=== PATIENT | female | born 1985 | race Caucasian/White ===

== ENCOUNTER 2019-06-11 05:30 | Day surgery (SDC) | payer MEDICAID ==
[2019-06-11] MEDS ORDERED: Dextrose 5%-Lactated Ringers 1,000 ML IV SCH (06:00)
[2019-06-11] MEDS ORDERED: Propofol 200 MG/20 ML SDV ONE (07:15)
[2019-06-11] MEDS ORDERED: Midazolam 1 MG/ML 2 ML SDV ONE (07:16)
[2019-06-11] MEDS ORDERED: fentaNYL 100 MCG/2 ML SDV ONE (07:16)
[2019-06-11 08:39] VITALS: BP 104/58; PULSE 60
--- NOTE | 2019-06-17 12:17 | OR ---
DATE OF PROCEDURE: 06/11/2019 SURGEON: Rashid Olvier MD PREOPERATIVE DIAGNOSIS: Blood in stool. POSTOPERATIVE DIAGNOSES: 1. Episodic rectal bleeding secondary to excoriated hemorrhoids. 2. Single small polyp in the sigmoid colon (not likely associated with bleeding). OPERATIVE PROCEDURE: Flexible colonoscopy with polypectomy by snare technique. ANESTHESIA: IV sedation. INDICATIONS FOR PROCEDURE: This is a 34-year-old female presenting with some intermittent blood in her stool, which appears to be happening primarily with the bowel movements and clinically with likely to be associated with hemorrhoidal disease. Plan is to proceed with flexible colonoscopy with biopsy and/or polypectomy as indicated. Potential risks including bleeding and perforation were discussed, and the patient wishes to proceed. DESCRIPTION OF PROCEDURE: The patient was taken to the operating room and placed in a left lateral decubitus position. IV sedation was administered, after which the initial digital rectal exam was performed and was unremarkable. Colonoscope was then passed into the rectum with retroflexion revealing diffusely somewhat excoriated hemorrhoidal columns. None of the hemorrhoids appeared to be distinctly well-defined enough to apply bands to. No active bleeding was seen. The scope was then eventually passed to the level of the cecum. The prep was fairly good with there only being a small amount of liquid stool present. To that level, no diverticula was seen and there was no evidence of colitis. A single polyp was identified measuring around 5 mm in the sigmoid colon 25 cm above the dentate line. This was encircled at its base with a cautery snare and excised. Good hemostasis was evident and the specimen was retrieved for histologic evaluation. Apart from that, no additional abnormalities were noted, and the procedure was then concluded. Assuming that the present polyp is an adenomatous polyp, the next colonoscopy should be in the range of 2 to 3 years. Otherwise, we would recommend the patient use agents such as Preparation-H with hydrocortisone on a p.r.n. basis for hemorrhoidal bleeding. If at some point the bleeding becomes persistent or surgery should be obtained to consider evaluation for banding and/or hemorrhoidectomy. Rashid Oliver MD /[id number]
== END 2019-06-11 08:47 | disposition home or self-care (01) ==
LOC: JP.SDS 05:30
PROVIDERS: ATTEND Surgery
DX: D12.5 Benign neoplasm of sigmoid colon (principal); K64.9 Unspecified hemorrhoids
CPT/HCPCS: 45385; 81025; 88305; J2250; J2704; J3010; J7121

== ENCOUNTER 2022-10-21 08:09 | Day surgery (SDC) | payer MEDICAID ==
[~2022-10-21 08:09] MED LIST: Midazolam 1 MG/ML 2 ML SDV ONE; Propofol 200 MG/20 ML SDV ONE; fentaNYL 50 MCG/ML SDV ONE
[2022-10-21] MEDS ORDERED: Sodium Chloride 0.9% 1,000 ML IV SCH (08:45)
[2022-10-21 11:42] VITALS: BP 105/68; PULSE 53
== END 2022-10-21 11:52 | disposition home or self-care (01) ==
LOC: JP.SDS 08:09
PROVIDERS: ATTEND Surgery
DX: K92.2 Gastrointestinal hemorrhage, unspecified (principal); K64.9 Unspecified hemorrhoids; Z86.010 Personal history of colon polyps; G47.00 Insomnia, unspecified; Z86.19 Personal history of other infectious and parasitic diseases
CPT/HCPCS: 45398; J2250; J2704; J3010; J7030